=== PATIENT | female | born 1965 | race Caucasian/White ===

== ENCOUNTER 2016-06-27 19:47 | Emergency (ER) | payer OTHER ==
[2016-06-27] MEDS ORDERED: LACTATED RINGERS 1,000 ML ONE (20:34)
[2016-06-27 20:46] LABS: PH,URINE 6.5 (5.0-8.0); URINE BILIRUBIN NEGATIVE (NEGATIVE); URINE BLOOD NEGATIVE (NEGATIVE); URINE GLUCOSE (UA) 3+ (NEGATIVE); URINE LEUKOCYTE ESTERASE NEGATIVE (NEGATIVE); URINE NITRITE NEGATIVE (NEGATIVE); URINE PROTEIN NEGATIVE (NEGATIVE); URINE UROBILINOGEN NORMAL (0-1 mg/dl)
[2016-06-27 20:47] LABS: ABSOLUTE NEUTROPHIL COUNT 4.2 K/mm3 (1.8-7.7); BASO % 0.6 % (0.2-1.0); EOS # 0.1 (0.0-0.5); EOS % 1.7 % (0.9-2.9); HEMATOCRIT 45.4 % (37.0-47.0); HEMOGLOBIN 15.3 gm/l (12.0-16.0); IMM NEUT # 0.1 K/mm3 (0-0.2); IMM NEUT% 0.8 % (0-1); LYMPH # 2.3 (1.0-4.8); LYMPH % 32.2 % (15-45); MEAN CELL VOLUME 93.4 fl (81.0-99.0); MEAN CORPUSCULAR HEMOGLOBIN 31.5 pg (27.0-31.0); MEAN CORPUSCULAR HGB CONC 33.7 g/dl (33.0-37.0); MEAN PLATELET VOLUME 10.5 fl (7.4-10.4); MONO # 0.5 (0.0-0.8); MONO % 6.5 % (4-12); NEUT % 58.2 % (43-75); PLATELET COUNT 196 K/mm3 (130-400); RED CELL DISTRIBUTION WIDTH 12.8 % (11.5-14.5)
[2016-06-27 20:48] LABS: URINE APPEARANCE CLEAR; URINE COLOR YELLOW
[2016-06-27 21:02] LABS: ALB/GLOB RATIO 1.2 (>1.0); ALBUMIN 3.7 gm/dL (3.5-5.7); CALCIUM 9.4 mg/dL (8.6-10.3)
--- NOTE | 2016-06-28 10:45 | CT ---
ABD/PELVIS W/O CON COMPARISON: None HISTORY: Hyperglycemia, headache, and vomiting. Technique: Using a [id number] Aquilion [address] scanner, images were obtained from the diaphragm to the floor the pelvis. No intravenous contrast. An automated dose reduction technique was used to minimize patient radiation dose. Dose: CTDIvol (mGy): 48.10 DLP(mGycm): 3025.50 FINDINGS: Lung bases: Normal Inferior mediastinum and heart: Normal Liver: Length 26 cm. Gallbladder: Normal Bile ducts: Normal. Pancreas: Normal Spleen: Normal Adrenal glands: Normal Kidneys: Normal Ureters: Normal Urinary bladder: Normal Uterus and adnexa: Hysterectomy. Blood vessels: Normal. Lymph nodes: Normal Stomach: Normal Duodenum: Normal Small intestine: Normal Appendix: Normal Colon: Normal Abdominal wall and supporting musculature: Small umbilical hernia containing fat. Bones: Degenerative changes. No acute finding. Old right lower rib fractures. IMPRESSION: 1. Hepatomegaly. 2. No evidence of bowel obstruction. Normal appendix. 3. Hysterectomy. 4. Degenerative changes spine. 5. Small fat-containing umbilical hernia. Preliminary report by [facility] radiologist Darrius Landa M.D. 06/27/2016 at 22:15
== END 2016-06-27 23:33 | disposition home or self-care (01) ==
LOC: ED 19:47
DX: E11.65 Type 2 diabetes mellitus with hyperglycemia (principal); R10.9 Unspecified abdominal pain; I47.1 Supraventricular tachycardia; I10 Essential (primary) hypertension; F17.210 Nicotine dependence, cigarettes, uncomplicated; Z79.84 Long term (current) use of oral hypoglycemic drugs; Z79.4 Long term (current) use of insulin
CPT/HCPCS: 83690; 85025; 80053; 81003; 84484; 74176; 99284 ×2; 96360; 96361 ×2; 82962 ×2; J7120